=== PATIENT | male | born 1970 | race Caucasian/White ===

== ENCOUNTER 2017-05-31 16:35 | Emergency (ER) | payer OTHER ==
[~2017-05-31] VITALS: Ht 175.3 cm; Wt 118.0 kg
[2017-05-31 16:43] VITALS: BP 153/94; PULSE 98; RESP 16; O2SAT 97
[2017-05-31] MEDS ORDERED: LIP40 PO (17:17)
--- NOTE | 2017-05-31 17:21 | DRSVH ---
PROCEDURE: X-RAY CHEST ONE VIEW, PORTABLE ([id number]) INDICATIONS: chest pain TECHNIQUE: One view of the chest was acquired. COMPARISON: None. FINDINGS: Surgical changes and devices: None. Lungs and pleura: No pleural effusions or pneumothorax. Lungs are clear. Mediastinum: Mediastinal contours appear normal. Heart size is normal. Bones and chest wall: No suspicious bony lesions. Overlying soft tissues appear unremarkable. IMPRESSION: No acute cardiopulmonary findings. Dictated by: Johanny Lucero M.D. on 05/31/2017 at 17:19 Approved by: Johanny Lucero M.D. on 05/31/2017 at 17:20
[2017-05-31 17:34] LABS: BASOPHILS % (AUTO) 0.1 % (0-3); EOSINOPHILS % (AUTO) 0.2 % (0-5); MONOCYTES % (AUTO) 6.7 % (4-12); Mean Corpuscular Hemoglobin 31.3 pg (27.0-35.0); Mean Corpuscular Volume 90.4 fL (81-100); NEUTROPHILS % (AUTO) 65.4 % (40-74); Platelet Count 239 bil/L (150-400)
[2017-05-31] MEDS ORDERED: Albuterol 2.5 mg/3 mL Inhalation Solution NEB ONE (17:50)
--- NOTE | 2017-05-31 17:58 | ED.REPORT ---
HPI-Dyspnea / Wheezing Date of Service May 31, 2017 ED Provider: Lucas John DO This is a 47-year-old male with history of hypertension and hyperlipidemia who presents to the emergency department for shortness of breath. This has been going on for one month and started after an 8 mile hike in [facility]. Patient feels like he is unable to catch his breath. He has associated aching chest pain in the left upper chest and in the last week he has noted intermittent sharp pain radiating to his neck lasting only a couple seconds. He says he feels better with movement and worse with rest. He was given a steroid taper for shortness of breath which he found to not help. He also complains of a associated raspy voice. He denies nausea, vomiting, fever, chills. Patient has had a cough with productive brown sputum. He has had some upper abdominal tightness one week prior after starting prednisone. Patient notes he gets diarrhea with stress. He has no family history of heart disease and no prior heart disease himself. Denies any history of diabetes. 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 Nursing Notes Stated Complaint: SHORTNESS OF BREATH/CHEST PAIN Chief Complaint: Chest Pain Nursing Notes Reviewed: Yes Allergies: Coded Allergies: No Known Allergies (Unverified , 05/31/17) Scheduled Atorvastatin (Lipitor) 40 Mg Tablet 40 MG PO DAILY General Time Seen by MD: 17:35 Chief Complaint Shortness of breath Risk Factors CAD Risk Stratification Hyperlipidemia HypertensionNo Amphetamine, No Cocaine, No Diabetes mellitus, No Family history, No Known CAD, No Smoking PERC Rule Heart rate 100 or over Past Medical History Past Medical History Hypertension Hyperlipidemia Past Surgical History Left carpal tunnel surgery Social History Former tobacco chewer for 26 years Alcohol Use: 3-5 per day (beer) Drug Use: Denies drug use Review of Systems Constitutional: Denies: Chills, Fever Respiratory: Reports: Prod cough, brown, Shortness of breath Cardiovascular: Reports: Chest pain Complete sys rev & neg: except as marked. GI: Reports: Diarrhea, Denies: Hematochezia, Nausea, Vomiting Male: Denies Dysuria, Denies Urinary frequency Physical Exam Initial Vital Signs Vital Signs (First) Date Time Temp Pulse Resp B/P Pulse Ox O2 Delivery O2 Flow Rate FiO2 05/31/17 16:43 37 98 16 153/94 97 05/31/17 18:23 Room Air Initial VS: Reviewed Head / Eyes: Atraumatic, Normocephalic ENT: Mucous membranes moist, Conjunctiva normal Abdomen / GI: Soft, No guarding, No rebound, No distention Back: No CVA tenderness Extremities: Vascular intact, Neuro intact, No swelling Skin: Warm, Dry Neurologic: Alert, Oriented Psychiatric: Mood/affect normal, Behavior normal, Normal thought content General/Constitutional: Awake, Alert, No acute distress, Well appearing, Well developed Respiratory / Chest: Breath sounds NL, Breath sounds = bilat, No respiratory distress Cardiovascular: Regular rhythm, Heart sounds NL Heart Rate / Rhythm: Positive: Tachycardia "Soreness" to epigastric palpation Interpretation & Diagnostics Lab Results Interpretation Result Diagram: 05/31/17 1729 05/31/17 1729 Test 05/31/17 17:29 05/31/17 17:30 White Blood Count 12.1th/mm3 (3.8-10.1) Red Blood Count 4.80mil/mm3 (4.40-5.80) Hemoglobin 15.0g/dL (13.8-17.2) Hematocrit 43.4% (41.0-50.0) Mean Corpuscular Volume 90.4fL (81-100) Mean Corpuscular Hemoglobin 31.3pg (27.0-35.0) Mean Corpuscular Hemoglobin Concent 34.6% (32.0-37.0) Red Cell Distribution Width 12.3% (12.3-15.4) Platelet Count 239bil/L (150-400) Neutrophils (%) (Auto) 65.4% (40-74) Lymphocytes (%) (Auto) 27.0% (14-46) Monocytes (%) (Auto) 6.7% (4-12) Eosinophils (%) (Auto) 0.2% (0-5) Basophils (%) (Auto) 0.1% (0-3) D-Dimer < 0.5mg/L FEU (<0.50) Sodium Level 139mEq/L (134-144) Potassium Level 3.7mEq/L (3.5-5.2) Chloride Level 98mEq/L (97-108) Carbon Dioxide Level 25mmol/L (18-29) Blood Urea Nitrogen 15mg/dL (6-24) Creatinine 0.90mg/dL (0.76-1.27) Estimat Glomerular Filtration Rate 97mL/min (>59) Glucose Level 90mg/dL (60-99) Calcium Level 9.7mg/dL (8.5-10.1) Magnesium Level 2.3mg/dL (1.6-2.6) Total Bilirubin 0.7mg/dL (0.0-1.2) Aspartate Amino Transf (AST/SGOT) 33U/L (0-50) Alanine Aminotransferase (ALT/SGPT) 53U/L (0-44) Alkaline Phosphatase 97U/L (25-150) Troponin T < 0.010ug/L (0.0-0.011) Total Protein 8.1g/dL (6.4-8.4) Albumin 4.7g/dL (3.4-5.0) Hold Nixon Top Tube Received (Received) X-Ray Chest Interpretation Chest Xray Interpretation: IMPRESSION: No acute cardiopulmonary findings. Re-Eval/Medical Decision Med Decision/Clinical Course Attending note: Heart score of 2. Workup unremarkable. Not typical of angina, PE, dissection. Will discharge with strict return precautions 47-year-old male with history of hypertension and hyperlipidemia events with shortness of breath ongoing for 1 month. He reports associated constant left chest ache. This all started after an 8 mile hike. Patient reports unable to catch his breath. He is saturating at 99% on room air on examination and in no acute respiratory distress. On exam lungs are clear to auscultation. Patient was tachycardic on exam with regular rhythm and without any murmurs. WBC 12.1 likely secondary to recent prednisone use. CMP unremarkable. Troponin is negative. D-dimer is unremarkable. Patient was given albuterol nebulizer which was found to be unhelpful for his symptoms. There is no evidence of PE or ACS at this time or any infectious process so patient is safe to discharge. Discharge & Departure Impression: Primary Impression: Non-cardiac chest pain Disposition: Home Discharge Condition All VS Reviewed: Yes Condition: Stable Patient Instructions: Noncardiac Chest Pain (ED) Additional Instructions: You do not have any evidence of any heart attack or blood clot to the lung based on blood work and chest x-ray. You should follow-up with her primary care provider within one week for further work up of your breathing. Attending Statement The patient was seen and examined together with Dr. rodgers on 05/31/17 and I have added additional information to the note above. Rg Rodgers DO May 31, 2017 17:58 Lucas John DO May 31, 2017 19:00
[2017-05-31 18:00] LABS: TROPONIN T < 0.010 ug/L (0.0-0.011)
[2017-05-31 18:08] LABS: Magnesium 2.3 mg/dL (1.6-2.6)
[2017-05-31 18:23] VITALS: PULSE 94; RESP 16; O2SAT 98
[2017-05-31 19:40] VITALS: BP 125/76; PULSE 79; RESP 16; O2SAT 95
== END 2017-05-31 19:41 | disposition home or self-care (01) ==
LOC: SED 16:35
DX: R07.89 Other chest pain (principal); I10 Essential (primary) hypertension; E78.5 Hyperlipidemia, unspecified
CPT/HCPCS: 36415; 71010; 80053; 82948; 83735; 84484; 85025; 85378; 93005; 94664; 99285; J7613